=== PATIENT | female | born 1965 | race Caucasian/White ===

== ENCOUNTER → 2017-02-07 | Outpatient (CLI) | payer OTHER ==
[2017-02-08 03:10] LABS: IgA 278 mg/dL (87-352); IgG 1333 mg/dL (700-1600); IgM 249 mg/dL (26-217)
== END ==
LOC: CAT 14:41
PROVIDERS: Internal Medicine Pulmonary Disease
DX: J32.9 Chronic sinusitis, unspecified (principal); R09.81 Nasal congestion; R05 Cough